=== PATIENT | male | born 1945 | race Two or more races ===

== ENCOUNTER 2016-08-20 10:47 | Outpatient (CLI) ==
--- NOTE | 2016-08-20 12:37 | DI ---
EXAM: Chest two view, frontal and lateral views. HISTORY: Cough. COMPARISON: None available. FINDINGS: The heart size is normal. There is no pulmonary vascular congestion. The lungs are shiva r. No pleural effusion or pneumothorax is seen. No acute osseous abnormality identified. Clips se en in the right upper abdomen. IMPRESSION: No acute cardiopulmonary process.
== END 2016-08-20 10:48 | disposition home or self-care (01) ==
LOC: RAD 10:47
PROVIDERS: ATTEND Family Medicine
DX: R05 Cough (principal)